=== PATIENT | female | born 1980 | race African-American/Black ===

== ENCOUNTER 2024-10-07 09:14 | Emergency (ER) | payer OTHER ==
[~2024-10-07] VITALS: Ht 180.3 cm; Wt 108.0 kg
[2024-10-07 09:33] VITALS: O2SAT 98
[2024-10-07] MEDS: KETOROLAC 15MG/ML VIAL IM ONE (10:45)
[2024-10-07] MEDS: LIDOCAINE 5% PATCH TOP SCH (10:46)
[2024-10-07 10:49] VITALS: BP 139/86; PULSE 90; RESP 18; TEMP 36.8; O2SAT 99
[2024-10-07] MEDS ORDERED: LIDO700A30 TP (11:15)
[2024-10-07] MEDS ORDERED: IBUP-2028 MT (11:15)
== END 2024-10-07 11:19 | disposition home or self-care (01) ==
LOC: ER 09:15
DX: S39.012A Strain of muscle, fascia and tendon of lower back, initial encounter (principal); M54.2 Cervicalgia; M47.812 Spondylosis without myelopathy or radiculopathy, cervical region; V89.2XXA Person injured in unspecified motor-vehicle accident, traffic, initial encounter; Y93.89 Activity, other specified; Y92.89 Other specified places as the place of occurrence of the external cause; Y99.8 Other external cause status
CPT/HCPCS: 99285; 72125; 81025; 73090; 96372; J1885